=== PATIENT | male | born 1975 | race Caucasian/White ===

== ENCOUNTER 2016-09-21 20:20 | Emergency (ER) | payer OTHER ==
[~2016-09-21 20:20] MED LIST: ASPIR 8181 MG PO; CHOLESTYRAMINE P4 GM PO; CLARITIN-D 241 EACH PO; CUBICIN 500 MG500 MG IV; GLUCOPHAGE500 MG PO; IBUPROFEN800 MG PO; JANUVIA100 MG PO; LIPITOR TAB 2020 MG PO; LOSARTAN-HCTZ1 EAC2 PO; NITROSTAT0.4 MG SL; PERCOCET 10-321 EACH PO; SERTRALINE HCL50 MG PO; TOPROL XL 50 MG50 MG PO; TRICOR 145 MG145 MG PO; VITAMIN C 500500 MG PO; VITAMIN D2400 UNIT PO; VITAMIN D50000 UNIT PO; VOLTAREN 0.1%2.5 ML TOP
== END 2016-09-21 22:42 | disposition left against medical advice (07) ==
LOC: ER1 20:20
DX: M79.674 Pain in right toe(s) (principal); E11.9 Type 2 diabetes mellitus without complications; Z88.0 Allergy status to penicillin

== ENCOUNTER 2016-09-23 21:15 | Emergency (ER) | payer OTHER | END 2016-09-23 22:54 | disposition home or self-care (01) | LOC: ER1 21:15 | DX: L60.0 Ingrowing nail (principal); I10 Essential (primary) hypertension; E78.5 Hyperlipidemia, unspecified; E78.00 Pure hypercholesterolemia, unspecified; E11.9 Type 2 diabetes mellitus without complications; E66.9 Obesity, unspecified; Z88.0 Allergy status to penicillin | CPT/HCPCS: 99283 ==

== ENCOUNTER 2016-11-12 09:22 | Emergency (ER) | payer OTHER | END 2016-11-12 10:12 | disposition home or self-care (01) | LOC: ER1 09:22 | DX: L23.7 Allergic contact dermatitis due to plants, except food (principal); I10 Essential (primary) hypertension; E11.9 Type 2 diabetes mellitus without complications; Z88.0 Allergy status to penicillin | CPT/HCPCS: 82962; 99282 ==

== ENCOUNTER → 2020-09-02 | Outpatient (CLI) | payer OTHER ==
[~2020-09-02] MED LIST changes: +BASAGLAR K100 UNIT/1 SQ; +CELEBREX100 MG PO; +CLARITIN10 M2 PO; +CLEOCIN HCL300 MG PO; +CYCLOBENZAPRINE10 MG PO; +ERYTHROMYCIN O3.5 GM OU; +ISOSORBIDE MONO30 MG PO; +KEFLEX CAP 500500 MG PO; +MS CONTIN15 MG PO; +NORTRIPTYLINE H10 MG PO; +PROTONIX 40 MG40 M1 PO; +TIZANIDINE HCL2 M1 PO; +ZOFRAN 4 MG TAB4 MG PO; +ZOFRAN4 MG PO
== END ==
LOC: KOH-I 09:02
DX: M25.371 Other instability, right ankle (principal); M25.372 Other instability, left ankle; M21.6X1 Other acquired deformities of right foot; Z98.890 Other specified postprocedural states
CPT/HCPCS: 73610

== ENCOUNTER 2021-04-28 14:43 | Inpatient (IN) | payer OTHER ==
[~2021-04-28] VITALS: Ht 185.4 cm; Wt 122.5 kg
[2021-04-28 15:43] LABS: HEMOGLOBIN 16.3 gm/dl (14.0-17.5); RED BLOOD COUNT 5.46 M/UL (4.20-5.50); WHITE BLOOD COUNT 8.2 K/UL (4.5-11.0)
[2021-04-28 16:14] LABS: BUN/CREATININE RATIO 22 (0-10)
[2021-04-28] MEDS ORDERED: HYDROCHLOROTH12.5 MG PO (23:43)
[2021-04-28] MEDS ORDERED: COZAAR 50MG TAB50 MG GT (23:44)
[2021-04-29] MEDS ORDERED: LORATADINE10 MG PO (00:08)
[2021-04-29] MEDS ORDERED: OXYCODONE-ACET1 EACH PO (00:22)
[2021-04-29] MEDS ORDERED: NORTRIPTYLINE H50 MG PO (00:40)
[2021-04-29] MEDS ORDERED: HYDROXYZINE HCL50 MG PO (00:41)
[2021-04-29] MEDS ORDERED: ESCITALOPRAM OX10 MG PO (00:42)
[2021-04-29] MEDS ORDERED: TOPIRAMATE50 MG PO (00:43)
[2021-04-29 06:28] LABS: WHITE BLOOD COUNT 6.2 K/UL (4.5-11.0)
[2021-04-29 06:31] LABS: HEMOGLOBIN 13.6 gm/dl (14.0-17.5); RED BLOOD COUNT 4.73 M/UL (4.20-5.50)
[2021-04-29 06:54] LABS: BUN/CREATININE RATIO 14 (0-10)
[2021-04-30 07:11] LABS: HEMOGLOBIN 13.5 gm/dl (14.0-17.5); RED BLOOD COUNT 4.6 M/UL (4.20-5.50); WHITE BLOOD COUNT 7.3 K/UL (4.5-11.0)
[2021-04-30 08:09] LABS: BUN/CREATININE RATIO 14 (0-10)
[2021-05-01 10:03] LABS: HEMOGLOBIN 14.2 gm/dl (14.0-17.5); RED BLOOD COUNT 4.79 M/UL (4.20-5.50); WHITE BLOOD COUNT 8.6 K/UL (4.5-11.0)
== END 2021-05-01 18:40 | disposition home or self-care (01) | DRG 439 ==
LOC: ER1 14:43 → M/S 18:08 → CDU 18:08 → M/S 19:50
PROVIDERS: Preventive Medicine Occupational Medicine; ADMIT Internal Medicine
DX: K85.00 Idiopathic acute pancreatitis without necrosis or infection (principal); E87.2 Acidosis; E87.1 Hypo-osmolality and hyponatremia; Z20.822 Contact with and (suspected) exposure to COVID-19; I10 Essential (primary) hypertension; E78.5 Hyperlipidemia, unspecified; F41.9 Anxiety disorder, unspecified; E66.01 Morbid (severe) obesity due to excess calories; F32.A Depression, unspecified; E11.65 Type 2 diabetes mellitus with hyperglycemia; Z90.49 Acquired absence of other specified parts of digestive tract; Z88.0 Allergy status to penicillin; Z79.82 Long term (current) use of aspirin; Z79.84 Long term (current) use of oral hypoglycemic drugs; Z79.899 Other long term (current) drug therapy; Z82.49 Family history of ischemic heart disease and other diseases of the circulatory system; Z83.3 Family history of diabetes mellitus; Z68.35 Body mass index [BMI] 35.0-35.9, adult
CPT/HCPCS: 36415; 80048; 80053; 81001; 82962; 83036; 83605; 83690; 85025; 85027; 85652; 86140; 87086; 93005; 96374; 96375; 96376; 99285; J1170; J1335; J1650; J2405; Q0177; Q9967; U0002

== ENCOUNTER → 2021-06-14 | Outpatient (CLI) | payer OTHER ==
[~2021-06-14] MED LIST changes: +COZAAR 50MG TAB50 MG GT; +ESCITALOPRAM OX10 MG PO; +HYDROCHLOROTH12.5 MG PO; +HYDROXYZINE HCL50 MG PO; +LORATADINE10 MG PO; +NORTRIPTYLINE H50 MG PO; +OXYCODONE-ACET1 EACH PO; +TOPIRAMATE50 MG PO
== END ==
LOC: CT 07:50
DX: R10.9 Unspecified abdominal pain (principal); K76.0 Fatty (change of) liver, not elsewhere classified
CPT/HCPCS: 36415; 82565; Q9967